=== PATIENT | female | born 2000 | race Two or more races ===

== ENCOUNTER 2021-11-06 15:24 | Emergency (ER) | payer OTHER ==
[~2021-11-06] VITALS: Ht 160 cm; Wt 59.0 kg
[2021-11-06] MEDS ORDERED: PANADOL (16:01)
== END 2021-11-06 17:54 | disposition home or self-care (01) ==
LOC: ER 15:24
DX: O20.9 Hemorrhage in early pregnancy, unspecified (principal); Z3A.01 Less than 8 weeks gestation of pregnancy

== ENCOUNTER 2022-02-28 16:44 | Emergency (ER) | payer OTHER ==
[~2022-02-28] VITALS: Ht 160 cm; Wt 59.0 kg
[~2022-02-28 16:44] MED LIST: PANADOL
== END 2022-02-28 22:17 | disposition home or self-care (01) ==
LOC: ER 16:44
DX: J45.909 Unspecified asthma, uncomplicated (principal); Z20.828 Contact with and (suspected) exposure to other viral communicable diseases

== ENCOUNTER 2022-08-17 12:40 | Emergency (ER) | payer OTHER ==
[~2022-08-17] VITALS: Ht 160 cm; Wt 61.7 kg
[2022-08-17] MEDS ORDERED: IPRAT-ALBUT 0.5-3 ML IH (15:08)
[2022-08-17] MEDS ORDERED: TUSNEL LIQUID178 ML PO (15:08)
[2022-08-17] MEDS ORDERED: ZITHROMAX500 MG PO (15:08)
[2022-08-17] MEDS ORDERED: MEDROLPACK PO (15:08)
== END 2022-08-17 15:22 | disposition home or self-care (01) ==
LOC: ER 12:40
DX: J45.998 Other asthma (principal); Z20.822 Contact with and (suspected) exposure to COVID-19